=== PATIENT | female | born 1975 | race Caucasian/White ===

== ENCOUNTER → 2016-09-25 | Outpatient (CLI) | payer BC ==
[~2016-09-25] MED LIST: BCPILLS PO
== END | disposition home or self-care (01) ==
LOC: C.PAPS 14:37
PROVIDERS: ATTEND Obstetrics & Gynecology
DX: Z01.419 Encounter for gynecological examination (general) (routine) without abnormal findings (principal)

== ENCOUNTER → 2016-10-08 | Outpatient (CLI) | payer BC ==
--- NOTE | 2016-10-08 15:37 | MAMMOGRAPHY REPORT ---
BILATERAL DIGITAL SCREENING MAMMOGRAM TOMOSYNTHESIS WITH CAD: 10/08/2016 CLINICAL HISTORY: Routine screening. Patient has no complaints. TECHNIQUE: Bilateral breast tomosynthesis in addition to standard 2D mammography was performed. Curr ent study was also evaluated with a Computer Aided Detection (CAD) system. COMPARISON: Comparison is made to exams dated: 12/19/2014 mammogram, 07/20/2013 mammogram, 06/06/2011 ultrasound, 06/06/2011 mammogram - [facility], 04/19/2009, and 04/06/2008. BREAST COMPOSITION: The tissue of both breasts is extremely dense, which lowers the sensitivity of mammography. FINDINGS: There is a possible 7 mm obscured mass in the middle one third of the right breast, along the posterior nipple line on the MLO view, located 5.4 cm posterior to the nipple. This is not minnie gwen seen on the CC view. Although it could represent normal overlapping fibroglandular tissue, all additional spot compression tomosynthesis HD images and possibly ultrasound are recommended. There is also a circumscribed 3 cm mass in the upper outer posterior breast, warranting further character ization with ultrasound, although this could represent a cyst. No other suspicious mass, architectural distortion or cluster of microcalcifications is seen. IMPRESSION: ACR BI-RADS CATEGORY 0: INCOMPLETE EVALUATION: NEED ADDITIONAL IMAGING EVALUATION The possible 7 mm obscured mass in the right breast, and circumscribed 3 cm mass in the left upper o uter posterior breast need additional evaluation. The patient will be called to schedule an appointment. Approximately 10% of breast cancers are not detected with mammography. A negative mammographic repor t should not delay biopsy if a clinically suggestive mass is present. Lucie Silva M.D. ay/:10/08/2016 13:53:51 Shipping And Receiving Weigher: Vanessa Morse, [facility] letter sent: Addl Imaging 0 BI-RADS Code: ACR BI-RADS Category 0: Incomplete Evaluation: Need Additional Imaging Evaluation
== END | disposition home or self-care (01) ==
LOC: C.MAMM 08:45
PROVIDERS: ATTEND Obstetrics & Gynecology
DX: Z12.31 Encounter for screening mammogram for malignant neoplasm of breast (principal); N63 Unspecified lump in breast

== ENCOUNTER → 2016-10-15 | Outpatient (CLI) | payer BC ==
--- NOTE | 2016-10-15 16:04 | MAMMOGRAPHY REPORT ---
UNILATERAL RIGHT DIGITAL DIAGNOSTIC MAMMOGRAM TOMOSYNTHESIS AND TARGETED BILATERAL ULTRASOUND: 017 CLINICAL HISTORY: 41-year-old woman called back from screening mammography for a circumscribed 3 cm mass in the left upper outer quadrant, and 7.1 mm nodular asymmetry in the middle one third of the r ight breast. Family history of breast cancer = mother. TECHNIQUE: Spot compression right CC and MLO 2-D digital and tomosynthesis images were obtained. COMPARISON: Comparison is made to exams dated: 10/08/2016 mammogram, 12/19/2014 mammogram, and 2012 mammogram - [facility]. BREAST COMPOSITION: The tissue of the right breast is heterogeneously dense, which may obscure smal l masses. FINDINGS: The spot compression tomosynthesis images of the right breast demonstrate complete effacem ent of the 7 mm nodular asymmetry seen on the screening mammogram performed 10/08/2016. There is no evidence for persistent mass or architectural distortion. No corresponding abnormality is seen on the spot compression CC view tomosynthesis images. Further evaluation with ultrasound was performed . Real-time high-resolution sonography evaluation was performed in the upper outer quadrant of the lef t breast and throughout the superior right breast including to 4:00 and 8:00 and retroareolar axes. In the left 2:00 breast, 4 cm from the nipple, a benign anechoic simple cyst is seen measuring 2.8 x 1.3 x 2.3 cm. This correlates well with the circumscribed mammographic mass and is benign. Withi n the right breast, incidental made note is made of 2 simple cysts in the 9:00 and 10:00 axes. In t he 9:00 right breast, 4 cm from the nipple, there is an 8.2 x 5.4 mm circumscribed anechoic cyst wit h posterior acoustic enhancement. In the 10:00 breast, 1 cm from the nipple, there is a 15.3 x 7.4 x 12.3 mm cyst with posterior acoustic enhancement. No suspicious solid mass or architectural disto rtion is seen. IMPRESSION: ACR BI-RADS CATEGORY 2: BENIGN, TARGETED ULTRASOUND ACR BI-RADS CATEGORY 2: BENIGN 1. Effacement of the 7 mm nodular asymmetry in the superior right breast, and no suspicious sonogra phic correlate. This most likely represented normal overlapping fibrolinear tissue. Incidental not e is made of 2 benign cysts in the upper outer quadrant of the right breast compatible with fibrocys tic changes. 2. The circumscribed mass in the left upper outer quadrant correlates with a benign anechoic simple cyst on ultrasound. 3. There is no mammographic or targeted sonographic evidence of malignancy bilaterally. Recommend routine mammography in one year. If the patient's risk factors for developing breast cancer are at least 20%, she would also qualify for screening breast MRI. These results and recommendations were discussed with the patient at the time of the exam. Approximately 10% of breast cancers are not detected with mammography. A negative mammographic repor t should not delay biopsy if a clinically suggestive mass is present. Lucie Silva M.D. ay/:10/15/2016 15:10:10 Design Manager: Charmaine SALAS)([place]), [facility] letter sent: Normal 1/2 BI-RADS Code: ACR BI-RADS Category 2: Benign Ultrasound BI-RADS: ACR BI-RADS Category 2: Benign
== END | disposition home or self-care (01) ==
LOC: C.MAMM 10:07
PROVIDERS: ATTEND Obstetrics & Gynecology
DX: N63 Unspecified lump in breast (principal)

== ENCOUNTER → 2017-09-26 | Outpatient (CLI) | payer OTHER ==
--- NOTE | 2017-09-26 13:58 | MAMMOGRAPHY REPORT ---
BILATERAL DIGITAL DIAGNOSTIC MAMMOGRAM TOMOSYNTHESIS WITH CAD AND TARGETED LEFT ULTRASOUND: 09/26/2017 CLINICAL HISTORY: The patient reports a palpable lump in her left breast for approximately one week. TECHNIQUE: Breast tomosynthesis in addition to standard 2D mammography was performed. Current study was also evaluated with a Computer Aided Detection (CAD) system. Bilateral CC and MLO 2-D and tomosy nthesis images were obtained. COMPARISON: Comparison is made to exams dated: 10/15/2016 ultrasound, 10/15/2016 mammogram, 10/08/2016 ma mmogram, 12/19/2014 mammogram, 07/20/2013 mammogram, and 06/06/2011 ultrasound - [facility]. BREAST COMPOSITION: The tissue of both breasts is heterogeneously dense, which may obscure small mas ses. FINDINGS: A triangle marker rhodes the site of the palpable lump in the left upper outer quadrant. A circumscribed oval 2.8 cm mass is seen in the region of the palpable lump, which was shown to repres ent a benign cyst on the prior 2016 ultrasound exam. The remainder of both breasts are stable compar ed to prior exams, without suspicious masses, calcifications, or areas of architectural distortion no zak. Targeted ultrasound was performed of the area of the palpable lump pointed out by the patient, in the left breast at approximately 2:00, 5 cm from the nipple. At the site of the palpable lump there is a circumscribed anechoic mass which measures 2.5 x 1.7 x 1.9 cm. This corresponds with the mammograp hic mass and is consistent with a benign simple cyst. IMPRESSION: ACR BI-RADS CATEGORY 2: BENIGN, TARGETED ULTRASOUND ACR BI-RADS CATEGORY 2: BENIGN The palpable lump corresponds with a benign 2.5 cm simple cyst in the left 2:00 breast. There is no mammographic or targeted sonographic evidence of malignancy. Recommend clinical follow-up for the pa lpable left breast lump, and recommend routine bilateral screening mammograms in one year. The patient has been verbally notified of the results. Approximately 10% of breast cancers are not detected with mammography. A negative mammographic report should not delay biopsy if a clinically suggestive mass is present. Zaida Nobles M.D. /:09/26/2017 10:42:30 Glass Mold Repairer: Vanessa Morse, [facility] letter sent: Normal 09/09 BI-RADS Code: ACR BI-RADS Category 2: Benign Ultrasound BI-RADS: ACR BI-RADS Category 2: Benign
== END | disposition home or self-care (01) ==
LOC: C.MAMM 10:07
PROVIDERS: ATTEND Obstetrics & Gynecology
DX: N63.21 Unspecified lump in the left breast, upper outer quadrant (principal)

== ENCOUNTER → 2017-10-16 | Outpatient (CLI) | payer OTHER | END | disposition home or self-care (01) | LOC: C.PAPS 09:43 | PROVIDERS: ATTEND Obstetrics & Gynecology | DX: Z01.419 Encounter for gynecological examination (general) (routine) without abnormal findings (principal) ==